=== PATIENT | male | born 1955 | race Hispanic/Latino ===

== ENCOUNTER 2023-03-10 11:50 | Emergency (ER) | payer OTHER ==
[~2023-03-10] VITALS: Ht 177.8 cm; Wt 97.5 kg
[2023-03-10 11:56] VITALS: BP 150/73; PULSE 60; RESP 18
[2023-03-10] MEDS ORDERED: ACETAMINOPHEN 500 MG TABLET PO ONE (12:30)
== END 2023-03-10 14:26 | disposition home or self-care (01) ==
LOC: EDH 11:50
DX: S09.8XXA Other specified injuries of head, initial encounter (principal); I10 Essential (primary) hypertension; E78.00 Pure hypercholesterolemia, unspecified; Z98.890 Other specified postprocedural states; W11.XXXA Fall on and from ladder, initial encounter; Y93.89 Activity, other specified; Y92.89 Other specified places as the place of occurrence of the external cause; Y99.8 Other external cause status
CPT/HCPCS: 70450; 72125

== ENCOUNTER 2024-12-19 19:59 | Emergency (ER) | payer OTHER ==
[~2024-12-19] VITALS: Ht 177.8 cm; Wt 101.2 kg
[~2024-12-19 19:59] MED LIST: LORA-192 PO
--- NOTE | 2024-12-19 20:00 | NUR ---
UA CUP PROVIDED
[2024-12-19 20:37] LABS: IMMATURE GRANULOCYTE ABSOLUTE 0.01 K/uL (0-1); NUCLEATED RED BLOOD CELLS 0.0 % (0.0-0.19); PLATELET COUNT (AUTO) 186 K/uL (130-400); RED BLOOD CELL COUNT(AUTO) 4.46 MIL/uL (4.50-6.20); RED CELL DISTRIBUTION WIDTH 12.8 % (11.0-15.5); WHITE BLOOD COUNT (AUTO) 5.0 K/uL (4.8-10.8)
[2024-12-19 20:39] LABS: GLUCOSE, URINE (UA) NEGATIVE (NEGATIVE); LEUKOCYTE ESTERASE ,URINE NEGATIVE Leu/uL (NEGATIVE); NITRATE,URINE NEGATIVE (NEGATIVE); OCCULT BLOOD,URINE NEGATIVE (NEGATIVE)
[2024-12-19 20:42] LABS: ADD UA MICROSCOPIC NO; APPEARANCE,URINE CLEAR (CLEAR)
[2024-12-19 20:54] LABS: CREATININE 1.2 mg/dL (0.5-1.3); GLOMERULAR FILTR. RATE CALC 66.0 mL/min (>90); GLUCOSE,RANDOM 119.0 mg/dL (70-105); SODIUM SERUM 140.0 mmol/L (136-145); UREA NITROGEN, BLOOD 23.0 mg/dL (7-18)
[2024-12-19 20:58] LABS: ASPARTATE AMINOTRANSFERASE 17.0 U/L (10-37); TOTAL PROTEIN, SERUM 7.4 g/dL (6.0-8.3)
[2024-12-19] MEDS: 0.9%NACL 1000ML 1,000 ML IV STA (21:05)
[2024-12-19] MEDS ORDERED: IOHEXOL-350 75 ML VIAL IV ONE (21:10)
--- NOTE | 2024-12-19 22:46 | HMCIMG ---
EXAM: CT Abdomen and Pelvis with IV contrast. CLINICAL HISTORY: Right flank and right lower quadrant pain. TECHNIQUE: Axial computed tomography images of the abdomen and pelvis with intravenous contrast. CONTRAST: Omnipaque 350. COMPARISON: None. FINDINGS: LUNG BASES: The lung bases appear clear. No pleural effusions are seen. LIVER: Unremarkable. GALLBLADDER AND BILE DUCTS: The gallbladder demonstrates radiopaque gallstones. No biliary ductal dilatation is evident. PANCREAS: Unremarkable. SPLEEN: Unremarkable. ADRENAL GLANDS: Unremarkable. KIDNEYS, URETERS, AND BLADDER: The kidneys appear within normal limits. There is no hydronephrosis or hydroureter. No urinary calculi are seen. STOMACH AND BOWEL: Unremarkable appearance of the stomach and bowel. No evidence of bowel obstruction. No evidence suggesting enteritis or colitis. APPENDIX: The appendix is not inflamed, demonstrating two luminal appendicoliths. PERITONEUM: No free fluid or free air. LYMPH NODES: No lymphadenopathy is evident. REPRODUCTIVE: Mild prostatomegaly. VASCULATURE: The aorta demonstrates subtle atheromatous calcifications without aneurysm. BONES: No aggressive appearing osseous lesion. No acute osseous pathology evident. SOFT TISSUE: There are small, fat-containing bilateral inguinal hernias. IMPRESSION: Cholelithiasis without acute cholecystitis. Recommend ultrasound correlation. No appendicitis. No urinary calculi or urinary obstruction. No other significant abnormality. /[place]
[2024-12-19] MEDS ORDERED: LIDO1ADH82 TP (23:03)
[2024-12-19] MEDS ORDERED: KETO10TA2 PO (23:03)
--- NOTE | 2024-12-19 23:04 | ERN ---
ED Note History of Present Illness Stated Complaint: RT FLANK PAIN Chief Complaint: Flank Pain Time Seen by MD: 20:01 Time Seen by Midlevel: 20:03 Dictation: 69-year-old male coming in with complaints of right back pain radiating to the right lower quadrant pain onset 3-4 hours prior to arrival. Patient denies any urinary symptoms like urinary frequency, dysuria, hematuria. Patient denies any nausea, vomiting diarrhea. Allergies: Coded Allergies: No Known Drug Allergies (Unverified Allergy, Unknown, 03/10/23) Home Meds Active Scripts Lorazepam (Ativan) 1 Mg Tablet, 1 MG PO AD for ANXIETY, #15 TAB Prov:ARBEN QUINTANILLA [employer] SPECIALIST 08/14/23 Past Medical History Past Medical History: CAD, High Cholesterol, Heart Disease, Hypertension, Other Additional Past Medical Hx: GALLSTONES Surgical History: CABG, Other Surgical History Other: KNEE BILATERAL, QUADRUPLE BYPASS 2011 Social History: ETOH Review of System Dictation Constitutional: Negative for fever,chills, and weight loss Eyes: Negative for injury, pain,redness, and discharge ENT: Negative for injury,pain or swelling Cardiovascular: Negative for chest pain, palpitations, and edema Respiratory: Negative for shortness of breath, cough, and wheezing, Abdomen/GI: Right lower quadrant pain Back: Flank pain : Negative for injury, bleeding and discharge MS/Extremity: Negative for injury and deformity Skin: Negative for rash, and discoloration Neuro: Negative for headache, weakness, numbness, tingling, and seizure Psych: Negative for suicide ideation, homicidal ideation, and hallucinations Review of Systems: was completed Initial Vital Sign VS Vital Signs Date Time Temp Pulse Resp B/P (MAP) Pulse Ox O2 Delivery O2 Flow Rate FiO2 12/19/24 20:00 97.9 60 18 145/63 99 Room Air 12/19/24 20:18 0 21 Physical Exam Dictation General: awake, alert, NAD Head/Face: Normocephalic, atraumatic Eyes: PERRL, EOMI, vision at baseline ENT: oral cavity clear, TMs clear, no signs of infection Neck: Trachea midline, supple, no nuchal rigidity Cardiovascular: RRR, normal S1/S2, No MRGs, no JVD Respiratory: CTAB, no respiratory distress, No rales or wheezes Abdomen: Soft, non-tender, non-distended, normal bowel sounds, no guarding or rebound. Skin: Warm, dry, normal turgor, no rash MS/Extremity: Pulses equal, no cyanosis, neurovascular intact, FROM Neuro: COAx4, GCS 15, strength 5/5, CN 2-12 intact, normal cerebellar exam, normal gait, Psych: Normal behavior, mood, and affect normal Results (Laboratory/Radiology) Laboratory/Radiology Laboratory Tests Test 12/19/24 20:11 12/19/24 20:12 Urine Color LIGHT-YELLOW (YELLOW) Urine Appearance CLEAR (CLEAR) Urine pH 7.5 (5.0-8.0) Urine Specific [place] 1.018 (1.001-1.031) Urine Protein NEGATIVE mg/dL (NEGATIVE) Urine Glucose (UA) NEGATIVE mg/dL (NEGATIVE) Urine Ketones NEGATIVE mg/dL (NEGATIVE) Urine Occult Blood NEGATIVE (NEGATIVE) Urine Nitrate NEGATIVE (NEGATIVE) Urine Bilirubin NEGATIVE mg/dL (NEGATIVE) Urine Urobilinogen 2.0 mg/dL (0.2-1.0) H Urine Leukocyte Esterase NEGATIVE Maria G/uL White Blood Count 5.0 K/uL (4.8-10.8) Red Blood Count 4.46 MIL/uL (4.50-6.20) L Hemoglobin 14.4 g/dL (14.0-18.0) Hematocrit 42.5 % (42-54) Mean Corpuscular Volume 95.3 fL (79-99) Mean Corpuscular Hemoglobin 32.3 pg (27.0-33.0) Mean Corpuscular Hemoglobin Concent 33.9 g/dL (32.0-36.0) Red Cell Distribution Width 12.8 % (11.0-15.5) Platelet Count 186 K/uL (130-400) Mean Platelet Volume 8.5 fL (7.5-10.5) Immature Granulocyte % (Auto) 0.2 % (0-1) Neutrophils (%) (Auto) 61.9 % (40.0-77.0) Lymphocytes (%) (Auto) 25.7 % (21.0-51.0) Monocytes (%) (Auto) 10.4 % (3.0-13.0) Eosinophils (%) (Auto) 1.2 % (0.0-8.0) Basophils (%) (Auto) 0.6 % (0.0-5.0) Neutrophils # (Auto) 3.1 K/uL (1.8-7.7) Lymphocytes # (Auto) 1.3 K/uL (1.0-4.8) Monocytes # (Auto) 0.5 K/uL (0.1-1.0) Eosinophils # (Auto) 0.06 K/uL (0.00-0.70) Basophils # (Auto) 0.03 K/uL (0.00-0.20) Absolute Immature Granulocyte (auto 0.01 K/uL (0-1) Nucleated Red Blood Cells 0.0 % (0.0-0.19) Sodium Level 140 mmol/L (136-145) Potassium Level 4.0 mmol/L (3.5-5.1) Chloride Level 102 mmol/L (101-111) Carbon Dioxide Level 30 mmol/L (21-32) Blood Urea Nitrogen 23 mg/dL (7-18) H Creatinine 1.2 mg/dL (0.5-1.3) Glomerular Filtration Rate Calc 66 mL/min (>90) Random Glucose 119 mg/dL (70-105) H Total Calcium 8.7 mg/dL (8.5-10.1) Total Bilirubin 0.3 mg/dL (0.2-1.0) Direct Bilirubin 0.1 mg/dL (0.0-0.3) Aspartate Amino Transf (AST/SGOT) 17 U/L (10-37) Alanine Aminotransferase (ALT/SGPT) 21 U/L (12-78) Alkaline Phosphatase 66 U/L (50-136) Total Protein 7.4 g/dL (6.0-8.3) Albumin 4.0 g/dL (3.5-5.0) Lipase 55 U/L (16-77) Labs Reviewed?: Yes CT Scan Comment: [place] [id number] [id number] IMAGING REPORT Signed PATIENT: ROSANNA SALES MR#: [id number] [birth year] : 1955 SEX: M AGE: 69 LOCATION: [facility] ORDER 46 STATUS: REG ER REPORT#: [id number] SERVICE 45 REASON: r flank and rlq pain ORDERING PHYSICIAN: LORI SPENCE CNP PROCEDURE: ABD PEL W - CT ABDOMEN/PELVIS W/CONTRAST EXAM: CT Abdomen and Pelvis with IV contrast. CLINICAL HISTORY: Right flank and right lower quadrant pain. TECHNIQUE: Axial computed tomography images of the abdomen and pelvis with intravenous contrast. CONTRAST: Omnipaque 350. COMPARISON: None. FINDINGS: LUNG BASES: The lung bases appear clear. No pleural effusions are seen. LIVER: Unremarkable. GALLBLADDER AND BILE DUCTS: The gallbladder demonstrates radiopaque gallstones. No biliary ductal dilatation is evident. PANCREAS: Unremarkable. SPLEEN: Unremarkable. ADRENAL GLANDS: Unremarkable. KIDNEYS, URETERS, AND BLADDER: The kidneys appear within normal limits. There is no hydronephrosis or hydroureter. No urinary calculi are seen. STOMACH AND BOWEL: Unremarkable appearance of the stomach and bowel. No evidence of bowel obstruction. No evidence suggesting enteritis or colitis. APPENDIX: The appendix is not inflamed, demonstrating two luminal appendicoliths. PERITONEUM: No free fluid or free air. LYMPH NODES: No lymphadenopathy is evident. REPRODUCTIVE: Mild prostatomegaly. VASCULATURE: The aorta demonstrates subtle atheromatous calcifications without aneurysm. BONES: No aggressive appearing osseous lesion. No acute osseous pathology evident. SOFT TISSUE: There are small, fat-containing bilateral inguinal hernias. IMPRESSION: Cholelithiasis without acute cholecystitis. Recommend ultrasound correlation. No appendicitis. No urinary calculi or urinary obstruction. No other significant abnormality. /[place] DICTATED BY: MARGARITO JULES Jr., MD DATE: 12/19/242344 ELECTRONICALLY SIGNED BY: MARGARITO JULES Jr., MD DATE: 12/19/242344 ED Course ED Course Orders Procedure Category Date Status Time Cbc With Differential LAB 12/19/24 Complete 20:04 Basic Metabolic Panel LAB 12/19/24 Complete 20:04 Hepatic Function Panel LAB 12/19/24 Complete 20:04 Lipase LAB 12/19/24 Complete 20:04 Urinalysis Profile LAB 12/19/24 Complete 20:04 0.9%Nacl 1000ml (Ns PHA 12/19/24 In Process 1000ml) 20:36 Ketorolac PHA 12/19/24 Complete Tromethamine 15mg/Ml 20:36 Ct Abdomen/Pelvis CT 12/19/24 Resulted W/Contrast 20:46 Iohexol (Omnipaque) PHA 12/19/24 Complete 21:10 Current Medications Medications (Trade) Dose Ordered Sig/Nikita Route PRN Reason Start Time Stop Time Status Last Admin Dose Admin Iohexol (Omnipaque) 75 ml STK-MED ONCE IV 12/19/24 21:10 12/19/24 21:10 DC Ketorolac Tromethamine (toRADol) 15 mg ONCE STAT IV 12/19/24 20:36 12/19/24 20:38 DC 12/19/24 21:05 Sodium Chloride 1,000 ml @ 100 mls/hr Q10H STAT IV 12/19/24 20:36 12/20/24 06:35 12/19/24 21:05 Vital Signs Date Time Temp Pulse Resp B/P (MAP) Pulse Ox O2 Delivery O2 Flow Rate FiO2 12/19/24 22:01 98.8 55 18 128/64 98 Room Air* 0 21 12/19/24 20:18 98.8 64 18 150/61 99 Room Air* 0 21 12/19/24 20:00 97.9 60 18 145/63 99 Room Air Medical Decision Making MDM MDM: 69-year-old male coming in with complaints of right back pain radiating to the right lower quadrant pain onset 3-4 hours prior to arrival. Patient denies any urinary symptoms like urinary frequency, dysuria, hematuria. Patient denies any nausea, vomiting diarrhea. CBC shows no leukocytosis, no anemia, no thrombocytopenia. Chemistry unremarkable. No electrolyte unremarkable. Kidney function within normal range. No transaminitis. Lipase within normal range. T bili within normal range. UA shows no evidence of urinary tract infection or hematuria. CTs scan with no acute findings. Stated that now that he is thinking about it he was bending over picking up things off the ground earlier today. Discussed with the patient possibly this being more musculoskeletal versus any other etiology. Stated that after fluids and ketorolac he felt much better. Educated on red flag symptoms of when to return back to the ER like fever, nausea vomiting diarrhea. Patient verbalized understanding, answered all questions. Differential diagnosis: Nephrolithiasis, urinary tract infection, appendicitis Rationale: Tests considered and ordered secondary to shared decision making include: Previous outside records reviewed: Old ER visits. Risk of complication and/or morbidity or mortality of patient management: None Medications-Per medication reconciliation Need for hospitalization: Patient does not meet criteria for hospitalization. Need for emergency major/minor surgery: No There are no social concerns with this patient. Prescription drug management Prescriptions will include symptomatic care Patient's prior external medical records from other ER visits were reviewed by me as indicated. Prior testing and results from previous visits were reviewed. Prior tests were taken into account with medical decision making and resource utilization, independent historian/historians were used to obtain complete medical history. I independently interpreted the test that were performed, results were reviewed by me and considered findings on radiology if ordered. Medical management and examination interpretation discussions were had by me with other qualified healthcare professionals as indicated for the patient's care. DX & DISP Disposition: Discharge Departure Impression: Primary Impression: Musculoskeletal pain Condition: Stable Scripts Lidocaine (Lidocaine) 4 % Adh..patch 1 PATCH TP DAILY for 10 Days, #10 PATCH 0 Refills Prov: LORI SPENCE CNP 12/19/24 Ketorolac Tromethamine (Ketorolac Tromethamine) 10 Mg Tablet 1 TAB PO Q6HPRN PRN for pain for 3 Days, #12 TAB 0 Refills Prov: LORI SPENCE CNP 12/19/24 Additional Instructions: Take medication as prescribed. Return to the hospital if you develop any fevers, nausea vomiting diarrhea. Referrals: USMAN STRONG MD (PCP) Time of Disposition: 23:03 I have reviewed the case, and I agree with, Diagnosis and Plan LORI SPENCE CNP Dec 19, 2024 23:03
[2024-12-19 23:21] VITALS: BP 135/72; PULSE 62; RESP 18; TEMP 98.8; O2SAT 98
== END 2024-12-19 23:29 | disposition home or self-care (01) ==
LOC: EDH 19:59
DX: R10.31 Right lower quadrant pain (principal); R10.A1 Flank pain, right side; I25.10 Atherosclerotic heart disease of native coronary artery without angina pectoris; E78.00 Pure hypercholesterolemia, unspecified; I11.9 Hypertensive heart disease without heart failure; Z95.1 Presence of aortocoronary bypass graft
CPT/HCPCS: 99285; 74177; 96374; 80076; 80048; 83690; 85025; 81003; 36415; J1885; J7030; Q9967